=== PATIENT | female | born 1965 | race Native Hawaiian/Other Pacific Islander ===

== ENCOUNTER 2018-07-06 12:14 | Outpatient (CLI) | payer OTHER | END 2018-07-06 21:15 | disposition home or self-care (01) | LOC: RAD 12:14 | DX: R60.1 Generalized edema (principal) ==

== ENCOUNTER 2018-07-08 10:16 | Emergency (ER) | payer OTHER ==
[~2018-07-08] VITALS: Ht 157.5 cm; Wt 60.3 kg
[2018-07-08 10:20] VITALS: BP 140/85
[2018-07-08 10:40] LABS: PLATELET COUNT 203 K/uL (152-353)
[2018-07-08] MEDS ORDERED: CARV6.25 PO (10:40)
[2018-07-08] MEDS ORDERED: LEVOFLOXACIN500 MG PO (10:41)
[2018-07-08] MEDS ORDERED: FURO40TA93 PO (10:42)
[2018-07-08] MEDS ORDERED: POTA20TA4 PO (10:43)
[2018-07-08] MEDS ORDERED: LANOXIN 0.120.125 M1 PO (10:44)
[2018-07-08 10:48] LABS: POTASSIUM 3.1 mmol/L (3.6-5.2)
== END 2018-07-08 14:45 | disposition short-term general hospital (02) ==
LOC: ED 10:16
DX: I42.9 Cardiomyopathy, unspecified (principal); I50.9 Heart failure, unspecified; J90 Pleural effusion, not elsewhere classified; C50.911 Malignant neoplasm of unspecified site of right female breast; R00.0 Tachycardia, unspecified
CPT/HCPCS: 36415; 80053; 81000; 82550; 82553; 83880; 84484; 85027; 93005; 96374; 99285; J2270

== ENCOUNTER → 2018-07-08 | Outpatient (CLI) | payer OTHER ==
[~2018-07-08] MED LIST: CARV6.25 PO; FURO40TA93 PO; LANOXIN 0.120.125 M1 PO; LEVOFLOXACIN500 MG PO; POTA20TA4 PO
== END | disposition short-term general hospital (02) ==
LOC: AMB 14:55
DX: I42.9 Cardiomyopathy, unspecified (principal); I50.9 Heart failure, unspecified; J90 Pleural effusion, not elsewhere classified; C50.911 Malignant neoplasm of unspecified site of right female breast; R00.0 Tachycardia, unspecified
CPT/HCPCS: A0425; A0429

== ENCOUNTER 2021-02-07 08:17 | Outpatient (CLI) | payer OTHER | END 2021-02-07 22:04 | disposition home or self-care (01) | LOC: INF 08:17 | PROVIDERS: ATTEND Internal Medicine | DX: Z23 Encounter for immunization (principal) | CPT/HCPCS: 96372 ==

== ENCOUNTER 2021-02-28 08:15 | Outpatient (CLI) | payer OTHER | END 2021-02-28 20:04 | disposition home or self-care (01) | LOC: INF 08:15 | PROVIDERS: ATTEND Internal Medicine | DX: Z23 Encounter for immunization (principal) | CPT/HCPCS: 96372 ==

== ENCOUNTER 2023-09-11 09:20 | Outpatient (CLI) | payer OTHER | END 2023-09-11 19:02 | disposition home or self-care (01) | LOC: MAMMO 09:20 | PROVIDERS: ATTEND Internal Medicine | DX: Z12.31 Encounter for screening mammogram for malignant neoplasm of breast (principal) ==